=== PATIENT | female | born 1940 | race Caucasian/White ===

== ENCOUNTER → 2016-08-06 | Outpatient (CLI) | payer OTHER ==
[~2016-08-06] MED LIST: ASPIRIN81 M1 PO; ATENOLOL25 MG; ATENOLOL50 MG PO; B50 COMPLEX PO; CITRACAL + D CA1 TA1; CITRACAL + D CA1 TA1 PO; DICYCLOMINE HCL20 MG; HYDROCHLOROTHIA25 MG PO; METOPROLOL TART25 MG PO; NEW B/P MED; OMEGA 3 FISH1 CAP.EC PO; POTASSIUM99 M2 PO; PROTONIX PO; RECLAST 55 MG/100 M; VITAMIN D1000 UNI1 PO; VITAMIN E1000 UNIT PO; [UNRECOGNIZED DRUG - REMARK]
== END | disposition home or self-care (01) ==
LOC: CSSDAY 10:40
DX: M81.0 Age-related osteoporosis without current pathological fracture (principal); Z79.899 Other long term (current) drug therapy
CPT/HCPCS: 96374; J3489